=== PATIENT | female | born 1980 | race Caucasian/White ===

== ENCOUNTER 2020-05-20 06:37 | Day surgery (SDC) | payer BC ==
--- NOTE | 2020-05-04 10:56 | PREOPHP ---
Date of Admission: 05/06/2020 History Of Present Illness: Ms. Yang is a 40-year-old female, 2, para 2-0-0-2 who is admitted for treatment for menorrhagia. She has had increasing problems over the last several years with heavy periods and it may last 5 to 7 days, and she may have accidents even despit e wearing pads and tampons. She was tried on Mirena IUD, but was still having bleeding issues and pr olonged bleeding. Because of this, she has chosen to undergo hysteroscopy, D and C, and NovaSure end ometrial ablation. Past Medical History: Includes 2 prior vaginal deliveries, prior tubal ligation. Otherwise no other significant hospitalizations. Current Medications: Include only levothyroxine. Allergies: SHE NO ALLERGIES OTHER THAN POSSIBLE REACTION TO DEMEROL. Social History: She does not smoke. Family History: Noncontributory. Review of Systems: She reports no recent cough, cold, fever, or chills. No recent nausea or vomiting. No breast knots or lumps. No bowel or bladder issues. Physical Examination: General: Pleasant female in no apparent distress. Neck: Supple without adenopathy or thyromegaly. Lungs: Clear. Cardiac: Regular rate and rhythm without murmurs. Breasts: Not examined. Abdomen: Without organosplenomegaly. Pelvic: Normal female external genitalia. Vaginal wall is pink, rugated. Cervix multiparous. Bima nual, no abnormalities, other than in midline somewhat enlarged. Extremities: No cyanosis, clubbing, or edema. Imaging: Ultrasound last year showed only one small 1.5 cm fibroid. Impression: Menorrhagia. Plan: The patient will undergo hysteroscopy, D and C, endometrial ablation. The risks and benefits are discussed. She has signed the operative permit in my presence. LATASHA/MELONIE Voice ID: [id number]
[2020-05-14 11:24] LABS: Absolute Lymphocytes (CBC) 1.4 K/uL (0.7-4.9); Basophils % 0.7 % (0-1.3); Hematocrit 33.6 % (36.0-45.0); Lymphocytes % 27.1 % (15.3-44.8); MPV 8.7 fL (7.6-11.3)
--- NOTE | 2020-05-19 09:21 | PREOPHP ---
Date of Admission: 05/20/2020 History Of Present Illness: Nirmala is a 40-year-old female, 2, para 2-0-0-2 who is status post tubal ligation. She is admitted with a history of menorrhagia unresponsive to medical management. Because of this, she will undergo hysteroscopy, D and C, and NovaSure endometrial ablat ion. Past Medical History: Includes 2 prior vaginal deliveries, prior tubal ligation, otherwise noncontri butory. Current Medications: Include Singulair and levothyroxine. Allergies: SHE HAS NO KNOWN ALLERGIES. Social History: Does not smoke. Family History: Noncontributory. Review of Systems: She reports no recent cough, cold, fever, or chills. No recent nausea or vomiting. No breast knots or lumps. No bowel or bladder issues. Physical Examination: Lungs: Clear. Cardiac: Regular rate and rhythm without murmurs. Breasts: Not examined. Abdomen: Without organosplenomegaly. Pelvic: Not performed today. Extremities: No cyanosis, clubbing, or edema. Impression: Menorrhagia, unresponsive to medical management. Plan: Patient will undergo hysteroscopy, D and C, and NovaSure endometrial ablation. She has signed operative permit in my presence previously. LATASHA/MELONIE Voice ID: [id number]
--- OUTSIDE RECORDS SUMMARY | 2020-05-20 06:39 | XMS REPORT | Continuity of Care Document ---
:1980 Author Organization [facility] t Address [address] [place] [address] Care Team Providers Name Role Phone Unavailable Unavailable Unavailable Problems Condition Condition Condition Status Onset Resolution Last Treating Co mments Source Name Details Category Date Date Treatment Clinician Date Asthma Asthma Problem Active [facility] 5-16 da 00:00: [facility] 00 Group Allergies, Adverse Reactions, Alerts This patient has no known allergies or adverse reactions. Social History Smoking Status Start Date Stop Date Source Never Smoker [facility] Medications Ordered Filled Start Stop Current Ordering Indication Dosage Frequency Signature Comments Components Source Medication Medication Date Date Medication? Clinician (SIG) Name Name acetaminoph acetaminoph No acetaminop [facility] en 300 en 300 hen 300 da mg-codeine mg-codeine mg-codeine [facility] 30 mg 30 mg 30 mg Group tablet PRN tablet PRN tablet PRN levothyroxi levothyroxi No levothyrox [facility] ne 88 mcg ne 88 mcg ine 88 mcg da tablet tablet tablet [facility] loratadine loratadine No 1capsul Q1D loratadine [facility] 10 mg 10 mg e(s) 10 mg da capsule capsule capsule Medica l Take 1 Take 1 Take 1 Group capsule capsule capsule every day every day every day by oral by oral by oral route. route. route. Stool Stool No Stool [facility] Softener Softener Softener [facility] Vital Signs Vital Name Observation Time Observation Value Comments Source BP Diastolic 2019-01-23 00:00:00 62 mm[Hg] [facility] Height 2019-01-23 00:00:00 64 [in_i] [facility] BMI (Body Mass 2019-01-23 00:00:00 23.7 kg/m2 [facility] [employer] [facility]) Group BP Systolic 2019-01-23 00:00:00 138 mm[Hg] [facility] Body Weight 2019-01-23 00:00:00 138 [lb_av] [facility] Procedures This patient has no known procedures. Encounters Start End Encounter Admission Attending Care Care Encounter Source Date/Time Date/Time Type Type Clinicians Facility Department ID 2019-01-23 2019-01-23 [facility] [place] - [id number] [facility] 00:00:00 00:00:00 Wilber Oden MD: [facility] [address], [address], [place] [address] , Ph. [phone] Results This patient has no known results.
[2020-05-20 06:52] LABS: Specific Gravity 1.025 (1.005-1.030)
[2020-05-20] MEDS ORDERED: DOXYCYCLINE 200 MG in NA CHLORIDE 0.9% 250 ML IVPB SCH (07:00)
[2020-05-20] MEDS ORDERED: FENTANYL CITR 100 MCG/2 ML ONE (07:06)
[2020-05-20] MEDS ORDERED: MIDAZOLAM HCL 2 MG/2 ML INJ ONE (07:06)
[2020-05-20] MEDS ORDERED: propofoL 200 MG/20 ML VIAL IV ONE (07:06)
[2020-05-20] MEDS ORDERED: Ringers Lactate 1,000 ML IV ONE (07:07)
[2020-05-20] MEDS ORDERED: LIDOCAINE 1% MPF 5 ML VIAL ONE (07:07)
[2020-05-20] MEDS ORDERED: CEFAZOLIN/SWI 1gm 1 GM/10 ML SYR ONE (07:07)
[2020-05-20] MEDS ORDERED: NA CHLORIDE 0.9% 1,000 ML ONE (07:23)
[2020-05-20] MEDS ORDERED: LIDOCAINE 1% W/EPI 1:100,000 MDV 20 ML VIAL ONE (07:27)
[2020-05-20] MEDS ORDERED: SILVER NITRATE 1 APPL TOP ONE (07:27)
[2020-05-20] MEDS ORDERED: CARBOPROST TROME 250 MCG/ML IM ONE (07:27)
[2020-05-20] MEDS ORDERED: OXYTOCIN 10 UNIT/ML ML IV ONE ×2 (07:27→07:28)
[2020-05-20 07:31] VITALS: O2SAT 100
[2020-05-20] MEDS ORDERED: KETOROLAC 30 MG/ML INJ ONE (08:05)
[2020-05-20] MEDS ORDERED: dexAMETHasone 10 MG/ML VIAL ONE (08:05)
[2020-05-20] MEDS ORDERED: ONDANSETRON 4 MG/2 ML VIAL ONE (08:22)
--- NOTE | 2020-05-20 08:23 | P.BOP ---
Preoperative diagnosis: Menorrhagia Postoperative diagnosis: same, submucousal lieomyomata Primary procedure: Hysteroscopy, D&C Secondary procedure: Novasure endometrila ablation Estimated blood loss: less than 5ml Findings: right lateral sm myoma Anesthesia: General Complications: None Transferred to: Recovery Room Condition: Good
[2020-05-20] MEDS ORDERED: KETOROLAC 30 MG/ML INJ IV ONE (08:25)
[2020-05-20 09:38] VITALS: BP 101/64; TEMP 97.9
--- NOTE | 2020-05-20 11:40 | OP ---
Surgeon: Wilber Hoang MD Anesthesiologist: Baldomero Toney CRNA and Dr. Mu Savage. Preoperative Diagnosis: Menorrhagia. Postoperative Diagnosis: Menorrhagia with right lateral submucosal myomata. Complications: None. Procedures: Hysteroscopy, dilatation and curettage, NovaSure endometrial ablation. Description Of Procedure: After satisfactory level of general anesthesia was obtained, the patient was prepped and draped in the usual fashion for vaginal surgery in high leg holders. Cervix was visualized, grasped and hysteroscope advanced. The patient was on her menses and so endometrium appeared somewhat shaggy. There was a small submucosal right lateral myoma identified. No obvious polyps were noted. Curettage of the endometrium was productive of minimal tissue. A NovaSure endometrial ablation was performed with a cavity length of 6.5 cm with a 3.5 cm with power of 125 aiken for 42 seconds. The patient was awakened and taken to recovery room in satisfactory condition. She received 200 mg of doxycycline preoperatively for prophylaxis. Final Hospital Discharge Diagnosis: Menorrhagia. Complications: None. Procedures: Hysteroscopy, dilatation and curettage of uterine endometrium, NovaSure endometrial ablation. Hospital Course: The patient is a 40-year-old female, admitted for treatment of menorrhagia. She underwent hysteroscopy, D and C, NovaSure endometrial ablation with noted a small right lateral submucosal leiomyomata at the time of the hysteroscopy. She had normal blood count, negative urine test. She was dismissed to be seen back in my office in 2 weeks with usual post D and C activity restrictions. LATASHA/MELONIE Voice ID: [id number] Report ID: [id number] STEPHANIE
== END 2020-05-20 10:10 | disposition home or self-care (01) ==
LOC: OR 06:37
PROVIDERS: ATTEND Specialist
PROC: 0UDB8ZX Extraction of Endometrium, Via Natural or Artificial Opening Endoscopic, Diagnostic (ICD-10-PCS; 2020-05-20)
PROC: 0U5B8ZZ Destruction of Endometrium, Via Natural or Artificial Opening Endoscopic (ICD-10-PCS; principal; 2020-05-20 07:30)
DX: N92.0 Excessive and frequent menstruation with regular cycle (principal); D25.0 Submucous leiomyoma of uterus; Z20.828 Contact with and (suspected) exposure to other viral communicable diseases; Z79.899 Other long term (current) drug therapy
CPT/HCPCS: 85025; 36415; 81025; 88305; 58563; U0002; J2704; J2250; J3010; J1100; J0690; J7120; J7050; J7030; J2405; J2590